=== PATIENT | female | born 2000 | race Caucasian/White ===

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

== ENCOUNTER 2021-06-11 19:00 | Emergency (ER) | payer OTHER ==
[~2021-06-11] VITALS: Ht 152.4 cm; Wt 70.3 kg
[2021-06-11 19:33] LABS: BASOPHILS ABSOLUTE AUTO 0.05 K/mm3 (0.00-0.23); BASOPHILS PERCENT AUTO 1 % (0-2); EOSINOPHILS ABSOLUTE AUTO 0.02 K/mm3 (0.00-0.68); EOSINOPHILS PERCENT AUTO 0 % (0-6); Hematocrit 38.3 % (33.0-51.0); Hemoglobin 12.9 g/dL (11.5-16.0); IMMATURE GRAN ABSOLUTE AUTO 0.03 K/mm3 (0.00-0.10); IMMATURE GRAN PERCENT AUTO 0 % (0-1); LYMPHOCYTES ABSOLUTE AUTO 2.43 K/mm3 (0.84-5.20); LYMPHOCYTES PERCENT AUTO 26 % (21-46); MONOCYTES ABSOLUTE AUTO 0.69 K/mm3 (0.16-1.47); MONOCYTES PERCENT AUTO 7 % (4-13); Mean Corpuscular HGB 29.3 pg (26.0-34.0); Mean Corpuscular HGB Conc 33.7 g/dL (31.5-36.5); Mean Corpuscular Volume 87 fL (80-100); Mean Platelet Volume 11.5 fL (9.1-12.4); NEUTROPHILS ABSOLUTE AUTO 6.11 K/mm3 (1.96-9.15); NEUTROPHILS PERCENT AUTO 66 % (41-73); Platelet Count 352 K/mm3 (150-400); RDW Coefficient Variation 11.6 % (11.7-14.2); RDW Standard Deviation 37.3 fL (35.1-46.3); White Blood Cell Count 9.33 K/mm3 (4.00-11.30)
[2021-06-11 19:51] LABS: Alanine Aminotransfer (ALT/SGP 24 U/L (12-78); Albumin, Blood 4.4 g/dL (3.4-5.0); Albumin/Globulin Ratio 1.3 (0.8-1.8); Alk Phos 65 U/L (45-116); Anion Gap 7 mmol/L (6-16); Aspartate Aminotrans (AST/SGOT 19 U/L (12-37); Bilirubin, Total 0.3 mg/dL (0.1-1.0); Blood Urea Nitrogen 14 mg/dL (8-21); Bun/Creatinine Ratio 18.2 (12.0-20.0); CO2, Blood 24 mmol/L (21-32); Calcium, Blood 9.5 mg/dL (8.5-10.1); Chloride, Blood 108 mmol/L (98-108); Creatinine, Blood 0.77 mg/dL (0.40-1.00); Globulin, Blood 3.5 g/dL (2.2-4.0); Glomerular Filtration Rate >60 (60-); Glucose, Blood 115 mg/dL (70-99); Potassium, Blood 3.7 mmol/L (3.5-5.5); Sodium, Blood 139 mmol/L (136-145); Total Protein, Blood 7.9 g/dL (6.4-8.2)
== END 2021-06-11 21:06 | disposition home or self-care (01) ==
LOC: ER 19:00
PROVIDERS: Physician Assistant
DX: R07.89 Other chest pain (principal); F41.9 Anxiety disorder, unspecified; Z79.899 Other long term (current) drug therapy
CPT/HCPCS: 36415; 71046; 80053; 84703; 85025; 93005; 93010; 99285-25; A9270

== ENCOUNTER → 2021-07-05 | Outpatient (CLI) | payer OTHER | LOC: LAB SHORT 17:50 → LAB 17:50 | DX: R35.0 Frequency of micturition (principal) | CPT/HCPCS: 87077; 87086; 87186 ==

== ENCOUNTER → 2022-03-02 | Outpatient (CLI) | payer OTHER | END | disposition home or self-care (01) | LOC: LAB SHORT 14:36 → LAB 14:36 | DX: J06.9 Acute upper respiratory infection, unspecified (principal) | CPT/HCPCS: 87081 ==

== ENCOUNTER → 2022-03-05 | Outpatient (CLI) | payer OTHER ==
[2022-03-05 14:17] LABS: Source, Urine Clean Catch
[2022-03-05 17:32] LABS: Appearance, Urine Clear (Clear); Bilirubin, Urine Neg (Neg); Blood, Urine Neg (Neg); Color, Urine Yellow (P-Yellow); Glucose Qualitative, Urine Neg (Neg); Ketones, Urine Neg (Neg); Leukocyte Esterase, Urine Neg (Neg); Nitrite, Urine Neg (Neg); Protein, Urine 1+ (Neg); Urobilinogen, Urine NORM (Normal)
== END | disposition home or self-care (01) ==
LOC: LAB SHORT 14:15 → LAB 14:15
PROVIDERS: Family Medicine
DX: Z34.91 Encounter for supervision of normal pregnancy, unspecified, first trimester (principal)
CPT/HCPCS: 87086

== ENCOUNTER → 2022-03-26 | Outpatient (CLI) | payer OTHER ==
[2022-03-28 01:09] LABS: CHLAMYDIA TRACHOMATIS, NAA Negative (Negative)
== END | disposition home or self-care (01) ==
LOC: LAB 10:35 → LAB SHORT 10:35
PROVIDERS: Family Medicine
DX: Z34.92 Encounter for supervision of normal pregnancy, unspecified, second trimester (principal)
CPT/HCPCS: 87491; 87591

== ENCOUNTER → 2022-06-18 | Outpatient (CLI) | payer OTHER ==
[2022-06-18 15:05] LABS: Free Thyroxine 0.91 ng/dL (0.70-1.60)
[2022-06-18 15:49] LABS: BASOPHILS ABSOLUTE AUTO 0.02 K/mm3 (0.00-0.23); BASOPHILS PERCENT AUTO 0 % (0-2); EOSINOPHILS ABSOLUTE AUTO 0.06 K/mm3 (0.00-0.68); EOSINOPHILS PERCENT AUTO 1 % (0-6); Hematocrit 29.3 % (33.0-51.0); Hemoglobin 9.8 g/dL (11.5-16.0); IMMATURE GRAN PERCENT AUTO 1 % (0-1); LYMPHOCYTES ABSOLUTE AUTO 1.84 K/mm3 (0.84-5.20); LYMPHOCYTES PERCENT AUTO 18 % (21-46); MONOCYTES ABSOLUTE AUTO 0.86 K/mm3 (0.16-1.47); MONOCYTES PERCENT AUTO 8 % (4-13); Mean Corpuscular HGB 30.2 pg (26.0-34.0); Mean Corpuscular HGB Conc 33.4 g/dL (31.5-36.5); Mean Corpuscular Volume 90 fL (80-100); NEUTROPHILS ABSOLUTE AUTO 7.39 K/mm3 (1.96-9.15); NEUTROPHILS PERCENT AUTO 72 % (41-73); Platelet Count 229 K/mm3 (150-400); RDW Coefficient Variation 12.2 % (11.7-14.2); Red Blood Cell Count 3.24 M/mm3 (3.80-5.20); White Blood Cell Count 10.27 K/mm3 (4.00-11.30)
== END | disposition home or self-care (01) ==
LOC: LAB SHORT 13:10 → LAB 13:10
PROVIDERS: Family Medicine
DX: Z34.92 Encounter for supervision of normal pregnancy, unspecified, second trimester (principal)
CPT/HCPCS: 82950; 84439; 85025

== ENCOUNTER → 2022-08-20 | Outpatient (CLI) | payer OTHER ==
[~2022-08-20] MED LIST changes: +POTA10T PO; +PRENATAL TABLE1 EAC2 PO
== END ==
LOC: LAB SHORT 11:05 → LAB 11:05
DX: Z34.90 Encounter for supervision of normal pregnancy, unspecified, unspecified trimester (principal); Z3A.00 Weeks of gestation of pregnancy not specified
CPT/HCPCS: 87081; 87150

== ENCOUNTER 2022-09-13 18:10 | Inpatient (IN) | payer OTHER ==
[2022-09-15] MEDS ORDERED: Percocet 5-3251 EACH PO (13:56)
[2022-09-15] MEDS ORDERED: DOCU100 PO (13:56)
[2022-09-15] MEDS ORDERED: IBUP600 PO (13:56)
== END 2022-09-15 18:40 | disposition home or self-care (01) | DRG 786 ==
DX: O48.0 Post-term pregnancy (principal); O45.93 Premature separation of placenta, unspecified, third trimester; O42.02 Full-term premature rupture of membranes, onset of labor within 24 hours of rupture; O76 Abnormality in fetal heart rate and rhythm complicating labor and delivery; Z3A.40 40 weeks gestation of pregnancy; Z37.0 Single live birth; Z79.899 Other long term (current) drug therapy

== ENCOUNTER → 2023-05-03 | Outpatient (CLI) | payer OTHER ==
[~2023-05-03] MED LIST changes: +DOCU100 PO; +IBUP600 PO; +Percocet 5-3251 EACH PO
== END ==
LOC: LAB 11:38 → LAB SHORT 11:38
PROVIDERS: Family Medicine
DX: Z12.4 Encounter for screening for malignant neoplasm of cervix (principal)
CPT/HCPCS: G0145

== ENCOUNTER 2025-05-14 23:47 | Emergency (ER) | payer OTHER ==
[~2025-05-14] VITALS: Ht 154.9 cm; Wt 74.8 kg
[2025-05-15 01:20] LABS: Source, Urine Clean Catch
[2025-05-15 01:28] LABS: Bilirubin, Urine Neg (Neg); Glucose Qualitative, Urine Neg (Neg); Ketones, Urine Neg (Neg); Leukocyte Esterase, Urine Neg (Neg); Protein, Urine Neg (Neg); Specific Gravity, Urine 1.005 (1.003-1.022); Urobilinogen, Urine NORM (Normal)
[2025-05-15 01:44] LABS: Color, Urine Yellow (P-Yellow)
[2025-05-15 02:00] VITALS: BP 103/65
[2025-05-15] MEDS ORDERED: SUMA25 PO (02:12)
== END 2025-05-15 02:15 | disposition home or self-care (01) ==
LOC: ER 23:47
PROVIDERS: Emergency Medicine
DX: G44.209 Tension-type headache, unspecified, not intractable (principal); Z76.0 Encounter for issue of repeat prescription; Z87.891 Personal history of nicotine dependence; Z79.899 Other long term (current) drug therapy
CPT/HCPCS: 81003; 81025; 93005; 93010; 99283; A9270

== ENCOUNTER 2025-06-08 02:20 | Emergency (ER) | payer OTHER ==
[~2025-06-08] VITALS: Ht 154.9 cm; Wt 74.8 kg
[~2025-06-08 02:20] MED LIST changes: +SUMA25 PO
[2025-06-08 03:02] LABS: BASOPHILS ABSOLUTE AUTO 0.08 K/mm3 (0.00-0.23); BASOPHILS PERCENT AUTO 1 % (0-2); EOSINOPHILS ABSOLUTE AUTO 0.12 K/mm3 (0.00-0.68); EOSINOPHILS PERCENT AUTO 1 % (0-6); Hematocrit 37.8 % (33.0-51.0); Hemoglobin 12.6 g/dL (11.5-16.0); IMMATURE GRAN ABSOLUTE AUTO 0.03 K/mm3 (0.00-0.10); IMMATURE GRAN PERCENT AUTO 0 % (0-1); LYMPHOCYTES ABSOLUTE AUTO 3.83 K/mm3 (0.84-5.20); LYMPHOCYTES PERCENT AUTO 34 % (21-46); MONOCYTES ABSOLUTE AUTO 0.80 K/mm3 (0.16-1.47); MONOCYTES PERCENT AUTO 7 % (4-13); Mean Corpuscular HGB Conc 33.3 g/dL (31.5-36.5); Mean Corpuscular Volume 87 fL (80-100); NEUTROPHILS ABSOLUTE AUTO 6.41 K/mm3 (1.96-9.15); NEUTROPHILS PERCENT AUTO 57 % (41-73); NRBC ABSOLUTE 0.00 K/mm3 (0.00-0.02); NRBC Auto 0.0 /100 WBC (0.0-0.2); Platelet Count 374 K/mm3 (150-400); RDW Coefficient Variation 11.7 % (11.7-14.2); RDW Standard Deviation 37.6 fL (35.1-46.3)
[2025-06-08 03:21] LABS: Alanine Aminotransfer (ALT/SGP 19.0 U/L (12-78); Albumin, Blood 3.8 g/dL (3.4-5.0); Albumin/Globulin Ratio 1.0 (0.8-1.8); Anion Gap 7.0 mmol/L (3-11); Aspartate Aminotrans (AST/SGOT 13.0 U/L (12-37); Bilirubin, Total 0.2 mg/dL (0.1-1.0); Blood Urea Nitrogen 11.0 mg/dL (8-24); CO2, Blood 25.0 mmol/L (21-32); Calcium, Blood 8.8 mg/dL (8.5-10.1); Chloride, Blood 109.0 mmol/L (98-108); Creatinine, Blood 0.71 mg/dL (0.40-1.00); Globulin, Blood 3.7 g/dL (2.2-4.0); Glucose, Blood 113.0 mg/dL (70-99); Potassium, Blood 3.2 mmol/L (3.5-5.5); Sodium, Blood 138.0 mmol/L (136-145); Total Protein, Blood 7.5 g/dL (6.4-8.2)
[2025-06-08 04:45] VITALS: BP 97/57
== END 2025-06-08 06:35 | disposition home or self-care (01) ==
LOC: ER 02:20
PROVIDERS: Emergency Medicine
DX: R07.2 Precordial pain (principal); E87.6 Hypokalemia; R73.9 Hyperglycemia, unspecified; Z79.899 Other long term (current) drug therapy; Z87.891 Personal history of nicotine dependence
CPT/HCPCS: 71046; 80053; 84484; 85025; 93005; 93010; 99285-25

== ENCOUNTER 2025-06-29 23:11 | Observation (INO) | payer OTHER ==
[~2025-06-29] VITALS: Ht 154.9 cm; Wt 72.6 kg
[2025-06-30 00:02] VITALS: BP 126/82
[2025-06-30 00:49] LABS: Source, Urine Clean Catch
[2025-06-30 00:53] LABS: Bilirubin, Urine Neg (Neg); Glucose Qualitative, Urine Neg (Neg); Ketones, Urine 3+ (Neg); Leukocyte Esterase, Urine Neg (Neg); Protein, Urine Neg (Neg); Specific Gravity, Urine 1.010 (1.003-1.022); Urobilinogen, Urine NORM (Normal)
[2025-06-30 00:59] LABS: Color, Urine Yellow (P-Yellow)
[2025-06-30 01:02] LABS: BASOPHILS ABSOLUTE AUTO 0.07 K/mm3 (0.00-0.23); BASOPHILS PERCENT AUTO 1 % (0-2); EOSINOPHILS ABSOLUTE AUTO 0.04 K/mm3 (0.00-0.68); EOSINOPHILS PERCENT AUTO 1 % (0-6); Hematocrit 40.1 % (33.0-51.0); Hemoglobin 13.1 g/dL (11.5-16.0); IMMATURE GRAN ABSOLUTE AUTO 0.03 K/mm3 (0.00-0.10); IMMATURE GRAN PERCENT AUTO 0 % (0-1); LYMPHOCYTES ABSOLUTE AUTO 2.76 K/mm3 (0.84-5.20); LYMPHOCYTES PERCENT AUTO 35 % (21-46); MONOCYTES ABSOLUTE AUTO 0.53 K/mm3 (0.16-1.47); MONOCYTES PERCENT AUTO 7 % (4-13); Mean Corpuscular HGB Conc 32.7 g/dL (31.5-36.5); Mean Corpuscular Volume 87 fL (80-100); NEUTROPHILS ABSOLUTE AUTO 4.47 K/mm3 (1.96-9.15); NEUTROPHILS PERCENT AUTO 57 % (41-73); NRBC ABSOLUTE 0.00 K/mm3 (0.00-0.02); NRBC Auto 0.0 /100 WBC (0.0-0.2); RDW Coefficient Variation 11.7 % (11.7-14.2); RDW Standard Deviation 37.4 fL (35.1-46.3)
[2025-06-30 01:07] LABS: U Amphetamine Screen Not Detected; U Barbituate Screen Not Detected; U Benzodiazapine Screen Not Detected; U Buprenorphine Screen Not Detected; U Cannabinoids Screen Not Detected; U Cocaine Screen Not Detected; U Methadone Screen Not Detected; U Methamphetamine Screen Not Detected; U Opiates Screen Not Detected; U Oxycodone Screen Not Detected; U Phencyclidine Screen Not Detected
[2025-06-30 01:09] LABS: Ethanol (Alcohol), Blood, Med <3 mg/dL; Salicylate <1.7 mg/dL (2.8-20.0)
[2025-06-30 01:13] LABS: Alanine Aminotransfer (ALT/SGP 18 U/L (12-78); Albumin, Blood 4.6 g/dL (3.4-5.0); Albumin/Globulin Ratio 1.2 (0.8-1.8); Anion Gap 12 mmol/L (3-11); Aspartate Aminotrans (AST/SGOT 18 U/L (12-37); Bilirubin, Total 0.6 mg/dL (0.1-1.0); Blood Urea Nitrogen 14 mg/dL (8-24); CO2, Blood 23 mmol/L (21-32); Calcium, Blood 9.3 mg/dL (8.5-10.1); Chloride, Blood 103 mmol/L (98-108); Creatinine, Blood 0.65 mg/dL (0.40-1.00); Globulin, Blood 3.7 g/dL (2.2-4.0); Glucose, Blood 122 mg/dL (70-99); Potassium, Blood 3.5 mmol/L (3.5-5.5); Sodium, Blood 134 mmol/L (136-145); Total Protein, Blood 8.3 g/dL (6.4-8.2)
[2025-06-30 01:47] LABS: Acetaminophen, Random <2.0 ug/mL (10.0-30.0)
[2025-06-30] MEDS ORDERED: BUSP5 PO (14:41)
[2025-06-30] MEDS ORDERED: LORA.5 PO (14:41)
[2025-06-30] MEDS ORDERED: ALEVAZOL56.7 G1 TOP (17:31)
== END 2025-06-30 14:05 | disposition other institution (70) ==
LOC: ER 23:11 → EOR 23:12 → ER 06-30 02:27 → EOR 06-30 02:27
PROVIDERS: Student in an Organized Health Care Education/Training Program; ADMIT Student in an Organized Health Care Education/Training Program
DX: F31.9 Bipolar disorder, unspecified (principal); R45.851 Suicidal ideations; F41.0 Panic disorder [episodic paroxysmal anxiety]; D64.9 Anemia, unspecified; Z79.899 Other long term (current) drug therapy; Z87.891 Personal history of nicotine dependence
CPT/HCPCS: 80053; 80320; 81003; 81025; 85025; 93005; 93010; 99285-25; A9270; G0378; G0480

== ENCOUNTER 2025-06-30 12:38 | Inpatient (IN) | payer OTHER ==
[~2025-06-30] VITALS: Ht 154.9 cm; Wt 72.5 kg
[2025-06-30] MEDS ORDERED: Aluminum Hydroxide 320MG/5ML 473 ML PO PRN (14:15)
[2025-06-30 14:16] VITALS: BP 122/68
[2025-06-30] MEDS ORDERED: Ondansetron 4 MG SoluTab MM PRN (14:20)
[2025-06-30] MEDS ORDERED: Polyethylene Glycol 3350 17 gm PO PRN (14:20)
[2025-06-30] MEDS ORDERED: LORA.5 PO (14:41)
[2025-06-30] MEDS ORDERED: BUSP5 PO (14:41)
[2025-06-30 14:46] VITALS: BP 122/68
--- NOTE | 2025-06-30 15:23 | NUR ---
PT BECAME EMOTIONALY LABILE DURING INTAKE. PT CRYING WITH SHALLOW BREATHING. SHE REPORTS PANIC ATTACKS FREQUENTLY REGARDING HEALTH ISSUES. OFFERNED PRN ATIVAN SHE DECLINED BUT ACCEPTED PRN VISTRIL AND COOL WASHCLOTH. MASS SCORE COMPLETE. PT IS NOW FINISHING ADMISSION. SHE APPEARS CALMER
--- NOTE | 2025-06-30 16:54 | NUR ---
ADMISSION NOTE PT WAS BROUGHT IN TO [facility] FROM [facility] ED ESCORTED BY [facility] AND . SHE ARRIVES TEARFUL AND COOPERATIVE. SHE DID NOT HAVE ANY BELONGINGS, THEY WERE SENT HOME FROM ED WITH HER MOTHER. PT WAS GIVEN [facility] SCRUBS AND A TWO RN SKIN CHECK WAS PERFORMED BY THIS RN AND LANG BURR. PT IS NOTED TO HAVING 4 LIGHT SMALL SPOTS OF RINGWORM THAT SHE HAS BEEN TREATING AND APPEAR TO BE AND THE END STAGES OF HEALING. SHE DENIES THAT THEY ITCH. DURING THE INTAKE ASSESSMENT SHE BECAME MORE TEARFUL AND HER ANXIETY ELEVATED. SHE REFUSED ANY MEDICATION INTERVENTIONS AT FIRST BUT THEN AGREED WHEN LANG SPOKE WITH HER. ALL FORMS WERE SIGNED. PT HAS A HX OF ANXIETY, PANIC ATTACKS, AND DEPRESSION. SHE STATES THEY AR TRIGGERED WHEN SHE THINKS SHE HAS SOMETHING PHYSICALLY WRONG WITH HER WHICH IS WHY SHE IS UNCOMFORTABLE TAKING MEDICATIONS. SHE TOOK PRN VISTARIL DURING INTAKE. THIS APPEARED TO HELP HER SHE BECAME MORE CALM DURING THE ASSESSMENT. PT IS HERE D/T HAVING SI WITHOUT A PLAN. SHE WAS BROUGHT TO ED BY BARBARA WHOM SHE CALLED HERSELF. NO ATTEMPTS WERE MADE. HE HAS A HX OF ONE OTHER MOMENT OF SI ABOUT 8 YEARS AGO, ALSO WITHOUT AN ATTEMPT BUT SHE HAD A PLAN TO OD ON PILLS. SHE STATES HER SI IS FLEETING AND SHE CAN USUALLY STOP IT ON HER OWN BUT SHE COULD NOT THIS TIME AND CALLED [facility]. SHE IS ALREADY ESTABLISHED WITH [facility] AN OUTPATIENT AND HER ONLY SUPPORT PERSON IS HER MOTHER. PT IS CONCERNED ABOUT NOT BEING ABLE TO SEE HER 2 YEAR OLD DAUGHTER WHILE IN [facility]. PT IS VOLUNTARY AND STATES HER GOAL IS TO BE ABLE TO BE COMFORTABLE TAKING MEDS AND TO LEARN NEW COPING SKILLS. ALL FORMS WERE SIGNED AND PT WAS ORIENTED TO THE UNIT, VISITING TIMES, PHONE TIMES, AND HER ROOM.
[2025-06-30] MEDS ORDERED: ALEVAZOL56.7 G1 TOP (17:31)
[2025-06-30 20:47] VITALS: BP 108/71
--- NOTE | 2025-07-01 04:01 | NUR ---
Patient is a very pleasant, alert and oriented girl. Appears to be somewhat shy in the milieu. Affect is flat, but indicates she is feeling much better than when she arrived. Took evening Buspar without complaint, but turned down any sleep aids and said, she has trouble taking pills even when she needs them. "that is what I am hoping to learn here, is how to help myself when I have a panic attack" Denied SI,HI and AVTH during evening assessment. Went to bed around 2100. right after evening snack. Will continue close monitoring every 15 minutes for comfort and safety.
[2025-07-01 07:51] LABS: CHOL/HDL RATIO 3.3; Cholesterol 154 mg/dL (50-200); HDL Cholesterol 47 mg/dL (>39); LDL/HDL RATIO 1.9; Low Density Lipoprotein Chol 91 mg/dL (0-110); Triglycerides 79 mg/dL (30-140); Very Low Density Lipoprot Chol 15 mg/dL (6-28)
[2025-07-01 08:50] VITALS: BP 120/68
[2025-07-01] MEDS ORDERED: Multivitamins 1 Tab PO SCH (09:00)
--- NOTE | 2025-07-01 18:22 | NUR ---
SHIFT SUMMARY PT DENIES SI/HI AND ANXIETY IN THE AM. SHE STATES SHE IS FEELING ANXIOUS ON HER COMMUNITY WORKSHEET, SHE DENIES NEED FOR PRN. PT IS CALM AND QUIET THIS SHIFT. AFFECT IS BLUNTED. SHE DENIES ANY HAULLUCINATIONS. SHE PARTICIPATES IN GROUPS AND OCCASIONALLY JOINS IN THE GROUP ROOM WHEN OPEN. SHE HAD A VISIT WITH HER MOTHER AND BROTHER. THEY BROUGHT HER IN PUZZLE BOOKS AND ONE READING BOOK. PT WAS COMPLIANT WITH HER SCHEDULED MEDICATIONS.
[2025-07-01 19:39] VITALS: BP 120/88
--- NOTE | 2025-07-01 23:57 | NUR ---
MID SHIFT SUMMARY PT RECIEVED VISTRIL AT BY PREVIOUS RN AT SHIFT CHANGE FOR HIGH ANXIETY. SHE STATED THAT SHE FELT LIGHT HEADED. VS TAKEN AND WNL. COOL WASHCLOTH AND SLOW BREATHING ENCOURAGED. PT ABLE TO CALM THEN RETURNED TO TV ROOM WITH PEERS. SHE DENIED CURRENT SI, AVH. EYE CONTACT WAS APPROPRIATE BUT SPEECH WAS SOFT ALMOST DIFFICULT TO HEAR. SHE REPORTED HER MOOD WAS BETTER BUT AFFECT IS SAD AND GAURDED. SHE TOOK PM MEDICATIONS AND IS NOW RESTING IN BED. WILL CONTINUE POC
--- NOTE | 2025-07-02 04:14 | NUR ---
SHIFT SUMMARY ASSUMED CARE OF PT SINCE 29 WHEN OTHER NURSE WENT HOME. PT HAS BEEN SLEEPING WELL WITH RR EVEN AND UNLABORED. SEE PREVIOUS NURSE'S NOTE. WILL CONTINUE TO MONITOR.
[2025-07-02 08:51] VITALS: BP 120/81
--- NOTE | 2025-07-02 12:25 | NUR ---
IMPORTANT DISCHARGE INFORMATION PATIENT TO BE DISCHARGED TODAY. HER MOTHER (OSCAR) WILL BE PICKING HER UP BETWEEN 5-5:30PM. HER PHONE NUMBER IS . ALL PARTIES VERBALIZE AN UNDERSTANDING OF TODAYS DISCHARGE. FOLLOW UP WITH PCP DR. CONTRERAS AT THE [facility] ON 07/12/25 AT 3:20PM. FOLLOW UP WITH YOUR MENTAL HEALTH PROVIDER AT [facility], SHE WILL REACH OUT TO ERENDIRA TO SCHEDULE AN APPOINTMENT. PHARMACY: [facility] FAX NUMBER [phone]
[2025-07-02] MEDS ORDERED: BUSP10 PO (12:52)
--- NOTE | 2025-07-02 18:10 | NUR ---
DISCHARGE SUMMARY PT D/C HOME AT 1722 WITH HER MOM AND STEP FATHER SHE WAS GIVEN MULTIPLE RECOURSE FOR [employer] AND [employer] FOR HER DAUGHTER. PCP APPT HAS BEEN SET UP, MENTAL HEALTH WILL CALL HER BACK FOR AN APPOINTMENT. SCRIPT WAS SENT TO ADELA DUFFY.
== END 2025-07-02 17:22 | disposition home or self-care (01) | DRG 880 ==
LOC: BHU 12:38
PROVIDERS: ADMIT Psychiatry & Neurology Psychiatry
DX: F41.1 Generalized anxiety disorder (principal); R45.851 Suicidal ideations; D64.9 Anemia, unspecified; Z98.891 History of uterine scar from previous surgery; Z87.891 Personal history of nicotine dependence; Z79.899 Other long term (current) drug therapy
CPT/HCPCS: 36415; 80061; 83036; A9270

== ENCOUNTER → 2025-08-23 | Outpatient (CLI) | payer OTHER ==
[~2025-08-23] MED LIST changes: +ALEVAZOL56.7 G1 TOP; +BUSP10 PO; +BUSP5 PO; +LORA.5 PO
[2025-08-23 11:39] LABS: BASOPHILS ABSOLUTE AUTO 0.05 K/mm3 (0.00-0.23); BASOPHILS PERCENT AUTO 1 % (0-2); EOSINOPHILS ABSOLUTE AUTO 0.08 K/mm3 (0.00-0.68); EOSINOPHILS PERCENT AUTO 1 % (0-6); Hematocrit 40.3 % (33.0-51.0); Hemoglobin 13.4 g/dL (11.5-16.0); IMMATURE GRAN ABSOLUTE AUTO 0.01 K/mm3 (0.00-0.10); IMMATURE GRAN PERCENT AUTO 0 % (0-1); LYMPHOCYTES ABSOLUTE AUTO 1.82 K/mm3 (0.84-5.20); LYMPHOCYTES PERCENT AUTO 29 % (21-46); MONOCYTES ABSOLUTE AUTO 0.49 K/mm3 (0.16-1.47); MONOCYTES PERCENT AUTO 8 % (4-13); Mean Corpuscular HGB Conc 33.3 g/dL (31.5-36.5); Mean Corpuscular Volume 87 fL (80-100); NEUTROPHILS ABSOLUTE AUTO 3.89 K/mm3 (1.96-9.15); NEUTROPHILS PERCENT AUTO 61 % (41-73); NRBC ABSOLUTE 0.00 K/mm3 (0.00-0.02); NRBC Auto 0.0 /100 WBC (0.0-0.2); Platelet Count 388 K/mm3 (150-400); RDW Coefficient Variation 12.1 % (11.7-14.2); RDW Standard Deviation 38.7 fL (35.1-46.3)
[2025-08-23 11:51] LABS: Alanine Aminotransfer (ALT/SGP 15.0 U/L (12-78); Albumin, Blood 4.2 g/dL (3.4-5.0); Albumin/Globulin Ratio 1.2 (0.8-1.8); Anion Gap 14.0 mmol/L (3-11); Aspartate Aminotrans (AST/SGOT 14.0 U/L (12-37); Bilirubin, Total 0.6 mg/dL (0.1-1.0); Blood Urea Nitrogen 12.0 mg/dL (8-24); CO2, Blood 26.0 mmol/L (21-32); Calcium, Blood 9.6 mg/dL (8.5-10.1); Chloride, Blood 103.0 mmol/L (98-108); Creatinine, Blood 0.71 mg/dL (0.40-1.00); Globulin, Blood 3.6 g/dL (2.2-4.0); Glucose, Blood 90.0 mg/dL (70-99); Potassium, Blood 4.1 mmol/L (3.5-5.5); Sodium, Blood 139.0 mmol/L (136-145); Total Protein, Blood 7.8 g/dL (6.4-8.2)
== END ==
LOC: LAB SHORT 11:35 → LAB 11:35
PROVIDERS: Physician Assistant
DX: R10.11 Right upper quadrant pain (principal)
CPT/HCPCS: 80053; 83690; 85025